=== PATIENT | female | born 1985 | race Caucasian/White ===

== ENCOUNTER 2019-04-06 02:10 | Inpatient (IN) | payer MEDICAID ==
[2019-04-06] VITALS (11 sets, daily range): BP systolic 84–131; BP diastolic 36–79
[~2019-04-06] VITALS: Ht 167.6 cm; Wt 59.1 kg
[~2019-04-06 02:10] MED LIST: NAPR-706 PO; RANI-290 PO
[2019-04-06] MEDS ORDERED: NO HOME MEDS (02:33)
[2019-04-06] MEDS ORDERED: vancomycin/NS 1 GM ADD-VANTAGE 250 ML IV ONE (02:45)
[2019-04-06] MEDS ORDERED: ondansetron/PF 4mg/2ml inj IV ONE (02:45)
[2019-04-06] MEDS ORDERED: normal saline 1000ML IV soln IVB ONE (02:45)
[2019-04-06] MEDS ORDERED: piperacillin/tazo 3.375gm/50ml 50 ML IV ONE (02:45)
[2019-04-06] MEDS ORDERED: iohexol 300mg/ml 100ml inj. ONE (02:56)
[2019-04-06 03:25] LABS: URINE HCG NEGATIVE (NEG)
[2019-04-06 03:26] LABS: CLARITY,URINE SLIGHTLY CLOUDY (Clear); COLOR,URINE YELLOW (Yellow); GLUCOSE, URINE NEGATIVE (Neg); KETONES,URINE NEGATIVE (Neg); LEUKOCYTE ESTERASE ,URINE NEGATIVE (Neg); NITRITES, URINE NEGATIVE (Neg); OCCULT BLOOD,URINE NEGATIVE (Neg); PROTEIN,URINE 30 mg/dl (Neg); UA COLLECTION TYPE CLN CATCH MIDSTREAM
[2019-04-06 03:36] LABS: RBC,URINE NONE SEEN /HPF (0-2); WBC,URINE 0-4 /HPF (0-4)
[2019-04-06 03:37] LABS: BACTERIA,URINE FEW /HPF (Neg); MUCUS STRANDS MODERATE /LPF (Neg); SQUAMOUS EPITHELIAL CELL,UR MANY /LPF (FEW); URINE AMPHETAMINE SCREEN POSITIVE (Neg); URINE BARBITUATE SCREEN NEGATIVE (Neg); URINE BENZODIAZEPINES SCREEN NEGATIVE (Neg); URINE CANNABINOID SCREEN NEGATIVE (Neg); URINE COCAINE SCREEN NEGATIVE (Neg); URINE METHADONE SCREEN NEGATIVE (Neg); URINE OPIATE SCREEN POSITIVE (Neg); URINE PHENCYCLIDINE SCREEN NEGATIVE (Neg)
[2019-04-06] MEDS ORDERED: LIDOcaine 1% w/epiNEPHrine 1:200,000 30ml vial SQ ONE (03:45)
[2019-04-06 04:27] LABS: BASOPHILS # (AUTO) 0.1 X10'3 (0-0.2); BASOPHILS % (AUTO) 0.4 % (0-1); EOSINOPHILS # (AUTO) 0.1 X10'3 (0-0.9); EOSINOPHILS % (AUTO) 0.4 % (0-6); HEMATOCRIT 33.3 % (35.0-45.0); HEMOGLOBIN 11.4 g/dl (12.0-16.0); LYMPHOCYTES # (AUTO) 1.6 X10'3 (1.1-4.8); LYMPHOCYTES % (AUTO) 10.5 % (21-51); MEAN CORPUSCULAR HEMOGLOBIN 26.7 PG (27.0-31.0); MEAN CORPUSCULAR HGB CONC 34.2 g/dL (33.0-36.5); MEAN CORPUSCULAR VOLUME 78.1 FL (78-98); MEAN PLATELET VOLUME 6.4 FL (7.4-10.4); MONOCYTES % (AUTO) 6.9 % (2-12); NEUTROPHILS # (AUTO) 12.5 X10'3 (1.8-7.7); NEUTROPHILS % (AUTO) 81.8 % (42-75); PLATELET COUNT 272 X10'3 (140-440); RED BLOOD COUNT 4.26 X10'6 (4.20-5.60); RED CELL DISTRIBUTION WIDTH 12.9 % (11.5-14.5); WHITE BLOOD COUNT 15.2 X10'3 (4.5-11.0)
[2019-04-06] MEDS: morphine 4 MG/ML inj SYRINge IV PRN ×5 (04:35→18:14)
[2019-04-06 04:42] LABS: PARTIAL THROMBOPLASTIN TIME 27 SECONDS (22-32)
[2019-04-06 04:45] LABS: ALANINE AMINOTRANSFERASE 20 U/L (12-78); ALBUMIN 2.6 G/DL (3.4-5.0); ALBUMIN/GLOBULIN RATIO 0.6 (1.1-1.5); ALKALINE PHOSPHATASE 97 IU/L (46-116); ANION GAP 3 (8-16); ASPARTATE AMINO TRANSFERASE 13 U/L (10-37); BILIRUBIN,TOTAL 0.3 MG/DL (0.1-1.0); BLOOD UREA NITROGEN 14 MG/DL (7-18); BUN/CREATININE RATIO 19.4 (6.6-38.0); CHLORIDE 98 MMOL/L (99-107); CREATININE 0.72 MG/DL (0.40-0.90); ETHANOL < 0.010 GM/DL (0.0-0.010); GLUCOSE 98 MG/DL (70-104); POTASSIUM 3.4 MMOL/L (3.5-5.1); SODIUM 131 MMOL/L (135-145); TOTAL CARBON DIOXIDE 30.2 MMOL/L (24-32); TOTAL PROTEIN 6.9 G/DL (6.4-8.2); eGFR > 90 ML/MIN
[2019-04-06] MEDS ORDERED: ondansetron/PF 4mg/2ml inj IV PRN (05:30)
[2019-04-06] MEDS ORDERED: acetaminophen 325mg tablet PO PRN (05:30)
[2019-04-06] MEDS ORDERED: potassium Cl 20 mEq SR tablet PO PRN (05:30)
[2019-04-06] MEDS ORDERED: morphine 2 MG/ML inj. syringe IV PRN (05:30)
[2019-04-06] MEDS ORDERED: potassium CL 10mEq/100ml bag 100 ML IV PRN (05:30)
[2019-04-06] MEDS ORDERED: normal saline 1000ml 1,000 ML IV ONE (05:55)
--- NOTE | 2019-04-06 05:55 | NUR ---
Notified BP 88/45, ordered 2L NS bolus at this time
[2019-04-06] MEDS: normal saline 1000ml 1,000 ML IV SCH ×4 (05:56→11:24)
[2019-04-06] MEDS ORDERED: VANCOMYCIN 750MG IV in NS 250 ML IV SCH ×4 (07:00)
--- NOTE | 2019-04-06 07:30 | NUR ---
Received report from NEVAEH Webster
[2019-04-06] MEDS ORDERED: vancomycin/NS 1 GM ADD-VANTAGE 250 ML IV SCH (08:00)
[2019-04-06] MEDS: piperacillin/tazo 3.375gm/50ml 50 ML IV SCH ×3 (08:00→23:42)
[2019-04-06] MEDS: lactobacillus rhamnosus 10,000 MMU CELLS/CAPSULE PO SCH ×2 (08:42→22:00)
--- NOTE | 2019-04-06 10:10 | NUR ---
Paged MCKAYLA NURSE
[2019-04-06] MEDS: potassium Cl 20 mEq SR tablet PO PRN ×3 (11:25→22:00)
[2019-04-06] MEDS: K and/or MAG REPLACEMENT MC SCH ×2 (11:25→21:45)
[2019-04-06] MEDS: VANCOMYCIN 750MG IV in NS 250 ML IV SCH ×2 (11:33→19:13)
[2019-04-06] MEDS ORDERED: LIDOcaine 1%/PF 5ML 10 MG/ML VIAL ONE (12:16)
--- NOTE | 2019-04-06 14:23 | NUR ---
[id number] MESSAGE: Kaleigh Scooby Rm [id number] Need to assess her pain med orders please. NEVAEH Garrett ext [phone]
--- NOTE | 2019-04-06 15:04 | NUR ---
[id number] MESSAGE: Kaleigh Guerrero Rm [id number] Lab unable to draw second blood culture due to poor veins. Second draw from line? Tami ext [phone]
--- NOTE | 2019-04-06 17:03 | NUR ---
[id number] MESSAGE: Kaleigh Vita RM 3012a BP 81/39 P 100 no po intake. Do you want to support her with fluids? Tami [phone]
--- NOTE | 2019-04-06 18:09 | NUR ---
Problems reprioritized. Patient report given, questions answered & plan of care reviewed with NEVAEH Buchanan.
--- NOTE | 2019-04-06 18:42 | NUR ---
Patient in room PCU 3011. I have received report from Tami HERRING and had the opportunity to ask questions and assume patient care.
[2019-04-07 02:00] VITALS: BP 151/73
[2019-04-07] MEDS ORDERED: VANCOMYCIN LEVEL IV NR (02:30)
[2019-04-07 02:38] LABS: BASOPHILS % (AUTO) 0.2 % (0-1); EOSINOPHILS % (AUTO) 0.1 % (0-6); HEMATOCRIT 33.6 % (35.0-45.0); HEMOGLOBIN 11.2 g/dl (12.0-16.0); LYMPHOCYTES % (AUTO) 6.9 % (21-51); MEAN CORPUSCULAR HEMOGLOBIN 26.5 PG (27.0-31.0); MEAN CORPUSCULAR HGB CONC 33.3 g/dL (33.0-36.5); MEAN CORPUSCULAR VOLUME 79.6 FL (78-98); MEAN PLATELET VOLUME 6.6 FL (7.4-10.4); MONOCYTES # (AUTO) 0.6 X10'3 (0-0.9); MONOCYTES % (AUTO) 4.2 % (2-12); NEUTROPHILS # (AUTO) 12.8 X10'3 (1.8-7.7); NEUTROPHILS % (AUTO) 88.6 % (42-75); PLATELET COUNT 281 X10'3 (140-440); RED BLOOD COUNT 4.21 X10'6 (4.20-5.60); WHITE BLOOD COUNT 14.4 X10'3 (4.5-11.0)
[2019-04-07 02:54] LABS: ALBUMIN 2.2 G/DL (3.4-5.0); ANION GAP 1 (8-16); BLOOD UREA NITROGEN 8 MG/DL (7-18); BUN/CREATININE RATIO 12.5 (6.6-38.0); CALCIUM 7.8 MG/DL (8.5-10.1); CHLORIDE 107 MMOL/L (99-107); CREATININE 0.64 MG/DL (0.40-0.90); GLUCOSE 147 MG/DL (70-104); POTASSIUM 3.2 MMOL/L (3.5-5.1); SODIUM 138 MMOL/L (135-145); TOTAL CARBON DIOXIDE 30.2 MMOL/L (24-32); eGFR > 90 ML/MIN
[2019-04-07] MEDS: VANCOMYCIN 750MG IV in NS 250 ML IV SCH (04:14)
[2019-04-07 06:00] VITALS: BP 90/42
--- NOTE | 2019-04-07 06:13 | NUR ---
Problems reprioritized. Patient report given, questions answered & plan of care reviewed with Francisca HERRING.
--- NOTE | 2019-04-07 06:30 | NUR ---
Patient in room PCU 3012A. I have received report from Wilda HERRING and had the opportunity to ask questions and assume patient care.
[2019-04-07] MEDS: lactobacillus rhamnosus 10,000 MMU CELLS/CAPSULE PO SCH ×2 (07:17→23:35)
[2019-04-07] MEDS: piperacillin/tazo 3.375gm/50ml 50 ML IV SCH ×2 (07:17→16:11)
[2019-04-07] MEDS: potassium Cl 20 mEq SR tablet PO PRN (07:17)
[2019-04-07] MEDS: K and/or MAG REPLACEMENT MC SCH (08:26)
[2019-04-07 11:00] VITALS: BP 103/67
--- NOTE | 2019-04-07 11:49 | NUR ---
Received call from lab, patient has positive blood culture from aerobic bottle, drawn 04/06/19 @ 0420, gram + cocci in clusters. Read back and verified with lab. Also notified charger operator, Mary Adan, and hospitalist, Dr. Whitmna. Aware of culture.
[2019-04-07] MEDS: VANCOmycin 1250MG/NS 250ml Bag 250 ML IV SCH ×2 (12:34→23:24)
[2019-04-07 15:00] VITALS: BP 114/67
[2019-04-07] MEDS: morphine 4 MG/ML inj SYRINge IV PRN (17:19)
--- NOTE | 2019-04-07 17:47 | NUR ---
Patient having episodes of vomiting. Was medicated without relief. Paged Dr. Whitman for additional medications. PAGER ID: [phone] MESSAGE: Francisca perez [phone]. Eugenio Guerrero 3012A. Patient having episodes of vomiting, had Zofran IV without relief. Can I have additional medications? Thanks
[2019-04-07] MEDS ORDERED: proCHLORperazine 10 MG/2 ml inj IV PRN (17:50)
[2019-04-07 18:00] VITALS: BP 138/86
--- NOTE | 2019-04-07 18:38 | NUR ---
Patient in room PCU 3009. I have received report from LIBBY HERRING and had the opportunity to ask questions and assume patient care.
--- NOTE | 2019-04-07 18:40 | NUR ---
Problems reprioritized. Patient report given, questions answered & plan of care reviewed with Wilda HERRING.
[2019-04-07] MEDS: normal saline 1000ml 1,000 ML IV SCH (21:27)
[2019-04-07 22:00] VITALS: BP 116/78
[2019-04-08] MEDS: piperacillin/tazo 3.375gm/50ml 50 ML IV SCH ×3 (00:45→16:04)
[2019-04-08] MEDS: potassium CL 10mEq/100ml bag 100 ML IV PRN ×4 (01:48→08:32)
[2019-04-08 02:00] VITALS: BP 128/72
[2019-04-08] MEDS: K and/or MAG REPLACEMENT MC SCH ×3 (02:11→19:06)
--- NOTE | 2019-04-08 02:16 | NUR ---
patient's potassium level was 3.2 this morning. she was vomiting all day yesterday and into last night, unable to keep anything down. She refused to take her medications, so IV potassium was administered.
[2019-04-08] MEDS: VANCOmycin 1250MG/NS 250ml Bag 250 ML IV SCH ×3 (04:18→19:05)
[2019-04-08 05:54] LABS: ALBUMIN 2.4 G/DL (3.4-5.0); ANION GAP 9 (8-16); BILIRUBIN,TOTAL 0.3 MG/DL (0.1-1.0); BLOOD UREA NITROGEN 10 MG/DL (7-18); BUN/CREATININE RATIO 11.9 (6.6-38.0); CALCIUM 8.3 MG/DL (8.5-10.1); CHLORIDE 109 MMOL/L (99-107); CREATININE 0.84 MG/DL (0.40-0.90); GLUCOSE 111 MG/DL (70-104); POTASSIUM 3.4 MMOL/L (3.5-5.1); SODIUM 144 MMOL/L (135-145); TOTAL CARBON DIOXIDE 26.5 MMOL/L (24-32); TOTAL PROTEIN 6.9 G/DL (6.4-8.2); eGFR 78 ML/MIN
[2019-04-08 05:55] LABS: ALANINE AMINOTRANSFERASE 16 U/L (12-78); ALBUMIN/GLOBULIN RATIO 0.5 (1.1-1.5); ALKALINE PHOSPHATASE 89 IU/L (46-116); ASPARTATE AMINO TRANSFERASE 13 U/L (10-37)
[2019-04-08 06:00] VITALS: BP 106/60
[2019-04-08 06:28] LABS: BASOPHILS % (AUTO) 0.1 % (0-1); EOSINOPHILS % (AUTO) 0.1 % (0-6); HEMATOCRIT 36.4 % (35.0-45.0); HEMOGLOBIN 12.2 g/dl (12.0-16.0); LYMPHOCYTES # (AUTO) 1.2 X10'3 (1.1-4.8); LYMPHOCYTES % (AUTO) 8.2 % (21-51); MEAN CORPUSCULAR HEMOGLOBIN 26.5 PG (27.0-31.0); MEAN CORPUSCULAR HGB CONC 33.4 g/dL (33.0-36.5); MEAN CORPUSCULAR VOLUME 79.3 FL (78-98); MEAN PLATELET VOLUME 6.8 FL (7.4-10.4); MONOCYTES # (AUTO) 0.8 X10'3 (0-0.9); MONOCYTES % (AUTO) 5.4 % (2-12); NEUTROPHILS # (AUTO) 12.3 X10'3 (1.8-7.7); NEUTROPHILS % (AUTO) 86.2 % (42-75); PLATELET COUNT 346 X10'3 (140-440); RED BLOOD COUNT 4.59 X10'6 (4.20-5.60); RED CELL DISTRIBUTION WIDTH 13.3 % (11.5-14.5); WHITE BLOOD COUNT 14.3 X10'3 (4.5-11.0)
--- NOTE | 2019-04-08 06:54 | NUR ---
Problems reprioritized. Patient report given, questions answered & plan of care reviewed with Chepe HERRING.
--- NOTE | 2019-04-08 06:55 | NUR ---
Patient in room PCU 3012. I have received report from Wilda HERRING and had the opportunity to ask questions and assume patient care.
[2019-04-08] MEDS: normal saline 1000ml 1,000 ML IV SCH ×2 (07:27→07:33)
[2019-04-08] MEDS: lactobacillus rhamnosus 10,000 MMU CELLS/CAPSULE PO SCH ×2 (07:30→20:56)
--- NOTE | 2019-04-08 10:36 | NUR ---
nauseated, did not wanted to eat. Addendum: 04/08/19 at 1037 by Chepe Salmon RN Amended: Links added.
[2019-04-08] MEDS ORDERED: LORazepam 1 MG tablet PO PRN (10:40)
[2019-04-08] MEDS ORDERED: metoclopramide 5 mg/ml inj IV PRN (10:40)
--- NOTE | 2019-04-08 10:51 | NUR ---
MD educated patient on exercise with ambulation around nsg station. Also recommended a warm compress for patients abscess.
[2019-04-08 11:00] VITALS: BP 130/81
[2019-04-08] MEDS ORDERED: VANCOMYCIN LEVEL IV ONE (11:30)
--- NOTE | 2019-04-08 18:15 | NUR ---
Problems reprioritized. Patient report given, questions answered & plan of care reviewed with Halie HERRING.
[2019-04-08 19:00] VITALS: BP 125/50
--- NOTE | 2019-04-08 21:08 | NUR ---
dr. pérez notified of patient desire to ama
--- NOTE | 2019-04-08 21:13 | NUR ---
lines being discontinued right ij and anival drain
== END 2019-04-08 21:30 | disposition left against medical advice (07) | DRG 720 ==
LOC: ER 02:11 → PCU 3S 05:27 → CMPBEDREQ 04-08 12:17
PROVIDERS: ADMIT Internal Medicine; ATTEND Internal Medicine
PROC: BW211ZZ Computerized Tomography (CT Scan) of Abdomen and Pelvis using Low Osmolar Contrast (ICD-10-PCS; principal; 2019-04-06)
PROC: 0H98X0Z Drainage of Buttock Skin with Drainage Device, External Approach (ICD-10-PCS; 2019-04-06)
PROC: 02HV33Z Insertion of Infusion Device into Superior Vena Cava, Percutaneous Approach (ICD-10-PCS; 2019-04-06)
DX: A41.9 Sepsis, unspecified organism (principal); K83.8 Other specified diseases of biliary tract; F11.10 Opioid abuse, uncomplicated; F15.90 Other stimulant use, unspecified, uncomplicated; L02.31 Cutaneous abscess of buttock; F17.210 Nicotine dependence, cigarettes, uncomplicated; Z53.29 Procedure and treatment not carried out because of patient's decision for other reasons; R11.0 Nausea
CPT/HCPCS: 10030; 36415; 36556; 71045; 74177; 76942; 80048; 80053; 80202; 80305; 80320; 81001; 81025; 83605; 84145; 85025; 85610; 85730; 87040; 87070; 87075; 87077; 87081; 87102; 87186; 96361; 96365; 96368; 96375; 99285; G0378; J0780; J2270; J2405; J2543; J3370; J3480; J7030; J7050; Q9967